=== PATIENT | male | born 1940 ===

== ENCOUNTER 2024-04-08 09:00 | Inpatient (IN) | payer MEDICARE, OTHER, SELFPAY ==
[2024-04-06 17:22] VITALS: BP 127/68
[2024-04-06 17:41] VITALS: BMI 23.6
[2024-04-06 18:00] VITALS: BP 100/65
[2024-04-06 18:09] LABS: AST (SGOT) 42 U/L (17-59); Albumin 3.5 g/dl (3.5-5.0); Alkaline Phosphatase 78 U/L (38-126); Blood Urea Nitrogen 35 mg/dl (9-20); Calcium 9.8 mg/dl (8.4-10.2); Carbon Dioxide 29 mmol/L (22-30); Chloride 98 mmol/L (98-107); Estimated Creatinine Clearance 50 ml/min; Glucose 131 mg/dl (70-99); Sodium 139 mmol/L (135-145); Total Bilirubin 1.4 mg/dl (0.2-1.3); Total Protein 6.7 g/dl (6.3-8.2); eGFR > 60.00
[2024-04-06 18:20] LABS: ALT (SGPT) 40 U/L (0-50)
[2024-04-06 18:25] LABS: % Basophils 0.2 % (0-2); % Eosinophils 0.1 % (0-6); % Immature Granulocytes 1.2 % (0-0.5); % Lymphocytes 5.1 % (20.5-51.1); % Monocytes 5.5 % (1.7-9.3); % Neutrophils 87.9 % (42.2-75.2); Absolute Basophils 0.1 10^3/uL (0-0.2); Absolute Immature Granulocytes 0.4 10^3/uL (0-0.05); Absolute Lymphocytes 1.6 10^3/uL (1.2-3.4); Absolute Monocytes 1.7 10^3/uL (0.1-0.6); Absolute Neutrophils 26.8 10^3/uL (1.4-6.5); Hematocrit 43.1 % (39.0-52.0); Hemoglobin 14.6 g/dL (13.0-18.0); Mean Corp Hgb Conc. 33.9 g/dL (33.0-37.0); Mean Corpuscular Hgb 26.8 pg (27.0-31.0); Mean Corpuscular Volume 79.2 fL (80.0-94.0); Mean Platelet Volume 9.5 fL (7.4-10.4); Nucleated Red Blood Cells % 0 % (-); Platelet Count 135 10^3/uL (130-400); Red Blood Cell Count 5.44 10^6/uL (4.70-6.10); Red Cell Dist. Width 14.1 % (11.5-14.5); White Blood Cell Count 30.5 10^3/uL (4.8-10.8)
[2024-04-06 19:00] VITALS: BP 105/68
[2024-04-06] MEDS: TORADOL 15 MG IV (19:33)
[2024-04-06 20:00] VITALS: BP 106/51
[2024-04-06 20:26] LABS: Creatine Phosphokinase 85 U/L (55-170)
[2024-04-06 21:01] VITALS: BP 120/62
--- NOTE | 2024-04-06 21:12 | ED.GENMED ---
History of Present Illness
General
Chief Complaint: Fall
Source: patient
Time Seen by Provider: 04/06/24 20:47
History of Present Illness
History of Present Illness:
84-year-old male presents to the emergency room complaining of back pain. Patient has a history of chronic back pain for which she sees pain management. His back pain has increased in intensity recently. Patient recently had an MRI of his lumbar
spine which showed spinal stenosis as well as some disc herniations. patient was prescribed a course of steroids by pain management with a plan on the bedside epidural injections if medications are not helping. Patient denies any bowel or bladder
dysfunction. Earlier this morning the patient was having back pain any got up out of bed. He had a sudden increase in the pain making it impossible for him to stand. He lowered himself to the ground and was laying on the ground for several hours.
He now has pain in his thoracic spine as well. Pain is all worse with movement. He denies any recent fever or chills.
Phy Exam
Physical Exam
Physical Exam:
General: Awake, Alert, Oriented X3. No acute distress, appears stated age, appears uncomfortable with movement
Vitals: unremarkable
Head: Atraumatic
Eyes: Pupils equal, EOMI
Throat: Airway intact, no exudates, dry mucous
Neck: Trachea midline
Lungs: Clear and equal b/l
Heart: Regular rate, no murmurs
Abd: Soft, Nontender, No pulsatile mass
Back: Point tenderness palpation along the mid thoracic region
Neuro: Muscle strength equal bilaterally, sensation intact bilaterally, negative straight leg test bilaterally
Skin: Warm, dry, no rash
Extremities: pulses equal b/l, no edema
Course
Orders/Labs/Results
Orders:
Orders
04/06/24 17:43
Complete Blood Count/With Diff Urgent
Comprehensive Metabolic Panel Urgent
Creatine Phosphokinase Urgent
Comment: ADD ON
04/06/24 19:30
Ketorolac [Toradol] 15 mg .ROUTE .STK-MED ONE
04/06/24 19:32
Add On- LAB Urgent
Tests Added?: CPK
Ketorolac [Toradol] 15 mg IV NOW STA
04/06/24 21:06
CT Thoracic Spine W/o Iv Contr Urgent
Comment:
Reason For Exam: severe thoracic pain, fall
HYDROmorphone [Dilaudid] 0.5 mg IV NOW STA
04/06/24 21:09
Urinalysis Reflex To Culture Urgent
Date Specimen was Collected: 04/07/24
Time Specimen was Collected: 02:09
04/06/24 22:48
Lumbar Spine wo Contrast CT [CT Lumbar Spine W/o Iv Contras] Urgent
Comment:
Reason For Exam: fall/backpain
04/07/24 01:18
HYDROmorphone [Dilaudid] 0.5 mg IV NOW STA
04/07/24 01:46
CRP [C-Reactive Protein] Urgent
Sed Rate [Erythrocyte Sed Rate] Urgent
04/07/24 02:23
Admit/Transfer Patient As Directed
Co-Sign Provider:
Level of Care: Observation services
Assign to:: Telemetry
Physician / Group: Mateo
Diagnosis: Intractable Back Pain
Reason for Telemetry: Arrhythmia
Date to Stop Telemetry: 04/10/24
Time to Stop Telemetry: 11:00
Code Status As Directed
Resuscitation Status: Full Code
PRN Pain Medication Management As Directed
May give lesser potent ordered pain med per pt: Yes
preference::
Protocol:: Medication orders for pain may be administered in a
manner that supports deferring to patient preference
when the pt is:
- Requesting an ordered lesser potent pain medication.
Least to most potent pain medications are defined
as: acetaminophen < NSAID < tramadol < opioids
(morphine, oxycodone, hydromorphone).
- Requesting a lesser dose of the same medication IF
ORDERED.
- Requesting a less intrusive route of administration
if both routes are prescribed by the provider (PO <
IV).
04/07/24 02:41
Add On- LAB Urgent
Tests Added?: urine drug screen
04/10/24 11:00
DC Protocol for Telemetry ONCE
Abnormal Lab Results
04/06/24 04/07/24
17:43 01:46
WBC 30.5 H 10^3/uL
(4.8-10.8)
MCV 79.2 L fL
(80.0-94.0)
MCH 26.8 L pg
(27.0-31.0)
Abs Immat Gran (auto) 0.4 H 10^3/uL
(0-0.05)
Absolute Neuts (auto) 26.8 H 10^3/uL
(1.4-6.5)
Absolute Monos (auto) 1.7 H 10^3/uL
(0.1-0.6)
Immature Gran % 1.2 H %
(0-0.5)
Neutrophils % 87.9 H %
(42.2-75.2)
Lymphocytes % 5.1 L %
(20.5-51.1)
ESR 30 H mm/hour
(0-20)
BUN 35 H mg/dl
(9-20)
Glucose 131 H mg/dl
(70-99)
Total Bilirubin 1.4 H mg/dl
(0.2-1.3)
C-Reactive Protein 173.50 H mg/L
(0.0-10.00)
04/06/24 17:43
04/06/24 17:43
Vital Signs
Initial and Last Documented VS:
Initial Vital Signs
Temp Pulse BP Pulse Ox
97.9 F 82 127/68 99
04/06/24 17:22 04/06/24 17:22 04/06/24 17:22 04/06/24 17:22
Last Documented Vital Signs
Temp Pulse Resp BP Pulse Ox
97.9 F 74 16 93/58 97
04/06/24 17:22 04/06/24 22:30 04/06/24 22:30 04/06/24 22:00 04/06/24 22:15
MDM/Problems Addressed
Differential Diagnosis Includes:
Exacerbation of chronic back pain, kidney stone, epidural abscess or osteomyelitis
MDM/Problems Addressed:
Patient presents due to severe persistent back pain. Patient unable to ambulate. He laid on the ground for quite a long time today because he could not get up from the pain. CPK is not elevated. Labs show an elevated white blood cell count at
30,000 which I suspect is related to recent prednisone use. Chemistry show mild prerenal azotemia. C-reactive protein is elevated at 173. Will hospitalize the patient for pain management and further evaluation.
*Radiology
Radiology exam reviewed: radiology read reviewed
*Pulse Oximetry
Patient hypoxic: no
*Critical Care Note
Total Time (30-74mins, 75-104mins- exclusive of procedures): Not Applicable
ED Attending Note
-
Portions of this chart may have been created with voice recognition software.� Occasional wrong word or��sound alike� substitutions may have occurred due to the inherent limitations of voice recognition software.
Discharge Plan
Departure
Patient Disposition: Admit
Date of Disposition: 04/07/24
Time of Disposition: 01:18
Admit to: Med/Surg
Presentation/result/management discussed w/ accepting MD/DO: Hospitalist
Condition: Fair
Discharge Problem:
Severe back pain, Spinal stenosis, Leukocytosis
Prescriptions:
No Action
Unobtainable
0
Referrals:
Rios Velásquez MD [Family Provider] -
Discharge Date and Time
Print Language: OCCITAN
[2024-04-06] MEDS: DILAUDID 0.5 MG IV (21:18)
[2024-04-06 22:00] VITALS: BP 93/58
[2024-04-07] VITALS (18 sets, daily range): BP systolic 94–132; BP diastolic 44–72; PULSE 63–65; BMI 23.6; BMI 22.4
[2024-04-07] MEDS: DILAUDID 0.5 MG IV ×3 (01:28→10:10)
[2024-04-07 02:03] LABS: Erythrocyte Sed Rate 30 mm/hour (0-20)
[2024-04-07 02:14] LABS: Urine Albumin Negative (Neg - Trace); Urine Bilirubin Negative (Negative); Urine Character Clear (Clear); Urine Color Yellow; Urine Glucose Negative (Negative); Urine Ketone Negative (Negative); Urine Leukocyte Negative (Negative); Urine Nitrite Negative (Negative); Urine Occult Blood Negative (Negative); Urine Urobilinogen Negative (Neg - 1+)
--- NOTE | 2024-04-07 02:26 | HPS.HSE ---
Family Physician
-
Family Physician: Rios Velásquez
Chief Complaint
-
Back Pain
History of Present Illness
Patient is an 84y M with PMH significant for aortic stenosis s/p AVR, ASCVD and DDD with chronic pain who presents to ED complaining of back pain. Patient is an extremely difficult historian. Often answering 'I don't know' or 'I'm not sure' to
questions regarding timing / onset of symptoms. He states that he developed severe low back pain last PM with radiation into the L buttocks and LLE. He lie on the floor at home for 7-8 hours - unable to move - before contacting 911 and presenting
to the ED for evaluation. He was incontinent of urine during that time.
Patient denies any recent fall, injury or trauma. He cannot / will not state when his symptoms first began.
He states that he is followed by Dr. Somers of Pain Management. PDMP query suggests that this is a very recent relationship with only a single Rx this far written and filled on 04/02/24.
Patient states that he was also treated with gabapentin and prednisone taper. He states that none of these measures improved his pain.
In the ED, patient is writhing around in bed appearing uncomfortable. He is moving his LEs without any apparent difficulty or changes to his pain.
Medical History
Past Medical History
Past Medical History: Reports Other
Additional Past Medical History:
Paroxysmal Atrial Fibrillation
ASCVD
Nephrolithiasis
Gout
Aortic Stenosis
Hypothyroidism
Hypertension
BPH
DDD / Chronic Pain
Past Surgical History: Reports Other
Additional Past Surgical History:
Bio AVR
CABG
Bilateral Hernia Repairs
Social History
Tobacco: Non-smoker
Alcohol: Former
Drug: None
Family History
Family History: Not pertinent
Allergies / Home Medications
Allergies reflects when Allergies were last updated in [facility]
Home Medications with original date entered in [facility]
Allergy/Medication List:
Patient is unable to recite his current medications and doses.
He is aware that he takes Multaq once daily (twice daily causes GI distress) and Eliquis 5mg BID.
He cannot recall other meds, doses, etc.
If medication reconciliation has not been performed, why?: Medication List N/A (Patient cannot recall.)
Review of Systems
-
History Source: Patient
A 12 point ROS was completed and negative except as noted: Yes
Constitutional: Denies Fever, Fatigue or Chills
Respiratory: Denies Cough or Trouble Breathing
Cardiac: Denies Chest Pain or Palpitations
Abdomen/GI: Denies Abdominal Pain, Nausea, Vomiting or Diarrhea
: Reports Incontinence; Denies Dysuria, Frequency or Flank Pain
Musculoskeletal: Reports Other (Back Pain, Sciatica); Denies Joint Pain or Edema
Neurological: Denies Dizzy or Headache
Physical Exam
Vital Signs
Vital Signs
Temp Pulse Resp BP Pulse Ox
97.9 F 74 16 93/58 97
04/06/24 17:22 04/06/24 22:30 04/06/24 22:30 04/06/24 22:00 04/06/24 22:15
Physical Exam
General: Other (84y M in moderate distress due to pain. Restless / writhing in bed.)
HEENT: Moist mucous membranes and PERRLA
Respiratory: Clear; No Wheezes, Rales or Rhonchi
Cardiac: S1/S2, Regular Rhythm and Murmur (II/ SHARONA)
GI: Soft, Non Tender, Non Distended and Normal Bowel Sounds
Musculoskeletal: No Clubbing, No Cyanosis, No Edema and Other (No paraspinal spasms / cords appreciated. Patient reports tenderness diffusely over the back. )
Neuro: AO x 3 and Nonfocal/grossly intact
Laboratory Results
-
04/06/24 17:43
04/06/24 17:43
Laboratory Results
Total Bilirubin 1.4 mg/dl (0.2-1.3) H 04/06/24 17:43
AST 42 U/L (17-59) 04/06/24 17:43
ALT 40 U/L (0-50) 04/06/24 17:43
Alkaline Phosphatase 78 U/L (38-126) 04/06/24 17:43
Impression/Plan
-
A/P: Patient is an 84y M with PMH significant for A-Fib, ASCVD and DDD who presents to ED complaining of back pain and sciatica.
Intractable Lower Back Pain
LLE Radicular Pain
- Observe overnight for further evaluation and treatment.
- CT T and L spine done in the ED with multilevel degeneration.
- Spinal stenosis at L3-4 and L4-5 levels.
- Patient with no perineal numbness / tingling. No evident LE weakness and he is moving without difficulty in the bed.
- Incontinent of urine at home - but seems due to inability to move from pain rather than neurogenic incontinence.
- Physical exam is relatively unremarkable excepting patient's apparent distress.
- Supportive care overnight with pain control.
- Tylenol ATC, lidocaine topical, heat application.
- Continue oxycodone for moderate pain. Dilaudid for severe pain.
- Trial of Valium for muscle spasms, etc.
- PT / OT evaluations in the AM and follow for clinical improvement.
- Follow-up with usual Pain Management as an outpatient.
Leukocytosis
- WBC on labs is 30k with no prior for comparison.
- ? secondary to recent steroid treatment?
- Hold further steroids for now - have not been effective in any event.
- Monitor for changes in cell counts.
- Patient with no fevers / chills, or other focal complaints to suggest infectious process.
Paroxysmal Atrial Fibrillation
- Patient reports remote h/o A-Fib that seemed always triggered by alcohol intake.
- He states that he has had no alcohol in many years.
- Continue Multaq and Eliquis.
- Monitor on tele overnight.
ASCVD
Aortic Stenosis s/p BioAVR
- Stable. No chest pain, dyspnea, etc.
- Confirm / reconcile meds in the AM and then resume usual regimen.
DVT Prophylaxis: On Eliquis
Code Status: Full
[2024-04-07 02:58] LABS: Amphetamines Negative (Negative); Barbiturates Negative (Negative); Benzodiazepines Negative (Negative); Buprenorphine Negative (Negative); Cocaine Negative (Negative); Marijuana Negative (Negative); Methadone Negative (Negative); Methamphetamines Negative (Negative); Opiates Negative (Negative); Phencyclidine Negative (Negative); Tricyclic Antidepressants Negative (Negative)
[2024-04-07 03:13] LABS: Fentanyl, Urine Negative (Negative)
[2024-04-07 06:46] LABS: Blood Urea Nitrogen 39 mg/dl (9-20); Calcium 8.9 mg/dl (8.4-10.2); Carbon Dioxide 26 mmol/L (22-30); Chloride 102 mmol/L (98-107); Estimated Creatinine Clearance 55 ml/min; Glucose 92 mg/dl (70-99); Potassium 3.5 mmol/L (3.5-5.1); Sodium 139 mmol/L (135-145); eGFR > 60.00
[2024-04-07 07:42] LABS: Hematocrit 36.3 % (39.0-52.0); Hemoglobin 12.5 g/dL (13.0-18.0); Mean Corp Hgb Conc. 34.4 g/dL (33.0-37.0); Mean Corpuscular Hgb 27.2 pg (27.0-31.0); Mean Corpuscular Volume 78.9 fL (80.0-94.0); Mean Platelet Volume 8.9 fL (7.4-10.4); Platelet Count 92 10^3/uL (130-400); Red Cell Dist. Width 14.3 % (11.5-14.5); White Blood Cell Count 15.6 10^3/uL (4.8-10.8)
[2024-04-07] MEDS: ELIQUIS 5 MG PO ×2 (08:56→20:03)
[2024-04-07] MEDS: LIDOCAINE 4% PATCH TOPICAL (08:56)
[2024-04-07] MEDS: TYLENOL 1000 MG PO ×3 (08:56→21:19)
[2024-04-07] MEDS: SYNTHROID 88 MCG PO (08:56)
[2024-04-07] MEDS: VALIUM 5 MG PO ×2 (09:03→17:13)
--- NOTE | 2024-04-07 09:03 | W.PN.HOSP.TC ---
Today's Communication/Plan
-
Pain control. PT eval
Assessment / Plan
Assessment / Plan
Physical exam:
General: Well Developed, Well Nourished and No Apparent Distress
HEENT: Normocephalic, Atraumatic and Moist Mucous Membranes
Respiratory: Clear to Auscultation; Negative Wheezes, Rales or Rhonchi
Cardiac: Regular Rhythm and S1/S2, systolic murmur
GI: Soft, Nontender and Nondistended
Musculoskeletal: No Clubbing, No Cyanosis and No Edema
Neuro: Awake, Alert and Oriented
Psych: Calm
A/P:
Intractable Lower Back Pain
LLE Radicular Pain
- Observe for further evaluation and treatment.
- CT T and L spine done in the ED with multilevel degeneration.
- Spinal stenosis at L3-4 and L4-5 levels.
- Patient with no perineal numbness / tingling. No evident LE weakness and he is moving without difficulty in the bed.
- Incontinent of urine at home - but seems due to inability to move from pain rather than neurogenic incontinence.
- Physical exam is relatively unremarkable excepting patient's apparent distress.
- Supportive care overnight with pain control.
- Tylenol ATC, lidocaine topical, heat application.
- Continue oxycodone for moderate pain. Dilaudid for severe pain.
- Trial of Valium for muscle spasms, etc.
- PT / OT evaluations in the AM and follow for clinical improvement.
- Follow-up with usual Pain Management as an outpatient.
-Start bowel regimen
-Discussed at length with family at bedside today on 04/07
Leukocytosis
- WBC on labs is 30k with no prior for comparison. WBC down to 15 today
- ? secondary to recent steroid treatment?
- Hold further steroids for now - have not been effective in any event.
- Monitor for changes in cell counts.
- Patient with no fevers / chills, or other focal complaints to suggest infectious process.
Paroxysmal Atrial Fibrillation
- Patient reports remote h/o A-Fib that seemed always triggered by alcohol intake.
- He states that he has had no alcohol in many years.
- Continue Multaq and Eliquis.
- Monitor on tele overnight.
ASCVD
Aortic Stenosis s/p BioAVR
- Stable. No chest pain, dyspnea, etc.
- Confirm / reconcile meds in the AM and then resume usual regimen.
DVT Prophylaxis: On Eliquis
Code Status: Full
Anticipated Discharge: 24 - 48 hours
Subjective/Interval History
-
Date of Service: April 07, 2024
Patient still has significant pain in his back. No bowel bladder incontinence. No fever
Objective Data
-
Labs:
Laboratory Results
04/07/24
05:58
WBC 15.6 H
Hgb 12.5 L
Hct 36.3 L
Plt Count 92 L D
Sodium 139
Potassium 3.5
Chloride 102
Carbon Dioxide 26
BUN 39 H
Creatinine 1.0
Glucose 92
Calcium 8.9
Vital Signs:
Vital Signs
Temp Pulse Resp BP Pulse Ox
97.9 F 62 17 99/72 95
04/06/24 17:22 04/07/24 05:00 04/07/24 05:00 04/07/24 05:00 04/07/24 05:00
[2024-04-07] MEDS: MILK OF MAGNESIA 30 ML PO (11:51)
[2024-04-07] MEDS: SENOKOT 8.6 MG PO ×2 (11:59→20:03)
[2024-04-07] MEDS: MIRALAX 17 GRAMS PO (11:59)
[2024-04-07] MEDS: ROXICODONE 5 MG PO (20:09)
[2024-04-08] MEDS: DILAUDID 0.5 MG IV ×3 (01:42→14:33)
[2024-04-08 03:20] VITALS: BP 116/61
[2024-04-08] MEDS: VALIUM 5 MG PO (04:53)
[2024-04-08] MEDS: SYNTHROID 88 MCG PO (04:56)
[2024-04-08 07:50] VITALS: BP 120/70
[2024-04-08] MEDS: SENOKOT PO ×2 (08:15→23:50)
[2024-04-08] MEDS: MIRALAX PO (08:15)
[2024-04-08] MEDS: ELIQUIS 5 MG PO (08:16)
[2024-04-08] MEDS: TYLENOL 1000 MG PO (08:16)
[2024-04-08 08:19] LABS: % Basophils 0.2 % (0-2); % Eosinophils 1.2 % (0-6); % Immature Granulocytes 1.2 % (0-0.5); % Neutrophils 84.4 % (42.2-75.2); Absolute Eosinophils 0.1 10^3/uL (0-0.7); Absolute Immature Granulocytes 0.1 10^3/uL (0-0.05); Absolute Lymphocytes 0.9 10^3/uL (1.2-3.4); Absolute Monocytes 0.4 10^3/uL (0.1-0.6); Absolute Neutrophils 8.2 10^3/uL (1.4-6.5); Hematocrit 38.1 % (39.0-52.0); Hemoglobin 13.1 g/dL (13.0-18.0); Mean Corp Hgb Conc. 34.4 g/dL (33.0-37.0); Mean Corpuscular Hgb 27.9 pg (27.0-31.0); Mean Corpuscular Volume 81.1 fL (80.0-94.0); Mean Platelet Volume 8.9 fL (7.4-10.4); Nucleated Red Blood Cells % 0 % (-); Platelet Count 101 10^3/uL (130-400); Red Cell Dist. Width 14.2 % (11.5-14.5); White Blood Cell Count 9.7 10^3/uL (4.8-10.8)
[2024-04-08] MEDS: LIDOCAINE 4% PATCH 1 PATCH TOPICAL (08:20)
[2024-04-08 08:52] LABS: Blood Urea Nitrogen 34 mg/dl (9-20); Calcium 9.2 mg/dl (8.4-10.2); Carbon Dioxide 26 mmol/L (22-30); Chloride 102 mmol/L (98-107); Estimated Creatinine Clearance 60 ml/min; Glucose 120 mg/dl (70-99); Potassium 3.7 mmol/L (3.5-5.1); Sodium 137 mmol/L (135-145); eGFR > 60.00
--- NOTE | 2024-04-08 09:18 | W.PN.HOSP.TC ---
Today's Communication/Plan
-
Increased pain regimen.
Assessment / Plan
Assessment / Plan
Physical exam:
General: Well Developed, Well Nourished and No Apparent Distress
HEENT: Normocephalic, Atraumatic and Moist Mucous Membranes
Respiratory: Clear to Auscultation; Negative Wheezes, Rales or Rhonchi
Cardiac: Regular Rhythm and S1/S2, systolic murmur
GI: Soft, Nontender and Nondistended
Musculoskeletal: No Clubbing, No Cyanosis and No Edema
Neuro: Awake, Alert and Oriented
Psych: Calm
A/P:
Intractable Lower Back Pain
LLE Radicular Pain
- Observe for further evaluation and treatment.
- CT T and L spine done in the ED with multilevel degeneration.
- Spinal stenosis at L3-4 and L4-5 levels.
- Patient with no perineal numbness / tingling. No evident LE weakness and he is moving without difficulty in the bed.
- Incontinent of urine at home - but seems due to inability to move from pain rather than neurogenic incontinence.
- Physical exam is relatively unremarkable excepting patient's apparent distress.
- Supportive care overnight with pain control.
- Tylenol ATC, lidocaine topical, heat application.
- Will change his pain regimen---> will start him on OxyContin 10 mg twice a day, oxycodone 5 mg for moderate pain, oxycodone 10 mg for severe pain, IV Dilaudid for breakthrough pain.
- Discontinue Valium
- PT / OT evaluations and follow for clinical improvement.
- Follow-up with usual Pain Management as an outpatient.
-Start bowel regimen
-Discussed at length with family at bedside on 04/07
Leukocytosis
-Reactive as evidenced below. Remains afebrile
- WBC on labs is 30k with no prior for comparison. WBC down to9.7 today
- ? secondary to recent steroid treatment?
- Hold further steroids for now - have not been effective in any event.
- Monitor for changes in cell counts.
- Patient with no fevers / chills, or other focal complaints to suggest infectious process.
Paroxysmal Atrial Fibrillation
- Patient reports remote h/o A-Fib that seemed always triggered by alcohol intake.
- He states that he has had no alcohol in many years.
- Continue Multaq and Eliquis.
- Monitor on tele overnight.
ASCVD
Aortic Stenosis s/p BioAVR
- Stable. No chest pain, dyspnea, etc.
- Confirm / reconcile meds in the AM and then resume usual regimen.
DVT Prophylaxis: On Eliquis
Code Status: Full
Anticipated Discharge: > 48 hours
Subjective/Interval History
-
Date of Service: April 08, 2024
Patient complains that his pain is out of control and has not been better. RN reports no issues with pain before but now he has been complaining.
Objective Data
-
Labs:
Laboratory Results
04/08/24
07:49
WBC 9.7
Hgb 13.1
Hct 38.1 L
Plt Count 101 L
Sodium 137
Potassium 3.7
Chloride 102
Carbon Dioxide 26
BUN 34 H
Creatinine 0.9
Glucose 120 H
Calcium 9.2
Vital Signs:
Vital Signs
Temp Pulse Resp BP Pulse Ox
98.4 F 85 12 120/70 94
04/08/24 07:50 04/08/24 07:50 04/08/24 07:50 04/08/24 07:50 04/08/24 07:50
I&O
04/07/24 04/08/24 04/09/24
06:59 06:59 06:59
Output Total 700 / 700
Balance -700 / -700
--- NOTE | 2024-04-08 10:00 | PTCARENOTE ---
Assumed care of patient from previous nurse. AAOx3, c/o 03/26 low back pain with movement. Pain medications administered, see MAR. Plan of care ongoing.
[2024-04-08] MEDS: ROXICODONE 5 MG PO (10:17)
[2024-04-08] MEDS: NEURONTIN 300 MG PO (10:54)
[2024-04-08 11:42] VITALS: BP 120/70
[2024-04-08] MEDS: HYDROCORTISONE 1% CREAM 1 APPLIC TOPICAL ×2 (13:06→23:49)
[2024-04-08] MEDS: ROXICODONE 10 MG PO ×2 (13:07→17:07)
[2024-04-08 15:15] VITALS: BP 127/64
--- NOTE | 2024-04-08 16:38 | CM ---
water reuse program manager reviewed patient's chart and met with patient and patient has switched to inpatient, IMM completed and placed on chart. Patient lives alone in a 2 story home with bed and bathroom on the 2nd floor, patient is independent with adl's and
uses a walker with ambulation, plan was for skilled placement however patient reports that he may have surgery.
Plan; To await final plan for patient.
PCP: Dr. Velásquez
Pharmacy [facility]
[2024-04-08] MEDS: TYLENOL PO ×3 (17:06→23:14)
[2024-04-08] MEDS: MULTAQ 400 MG PO (17:06)
[2024-04-08 19:28] VITALS: BP 110/63
[2024-04-08 21:25] VITALS: BP 126/90
[2024-04-08 21:28] LABS: Glucose - Point of Care 118 mg/dl (70-99)
--- NOTE | 2024-04-08 21:30 | RR ---
A Rapid Response was called on this patient, please see Rapid Response form.
RN entered pt room to administer scheduled meds. 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 Pt BP 126/90, HR 102, Temp
101.5, RR 16- regular, SPO2 94% RA, BS 118, EKG done. Rapid response and stroke alert called. Rectal tylenol ordered and administered, head CT and chest xray ordered, labs drawn, 500mL bolus ordered.
[2024-04-08] MEDS: TYLENOL/FEVERALL 650 MG RECTAL (22:01)
--- NOTE | 2024-04-08 22:01 | W.PN.UPDATE ---
Update Note
Progress Note Update
PARACHUTE MARKER/Stroke alert alert
Patient has a change on mental status and confused. Patient not able to follow direction and was disoriented. Not able to get accurate NIH score.
VSS temp 102, bp 126/98, SPO2 95% RA, hr 94. BS 118.
Discussed the case with neurologist party plan salesperson. Head CT and head/neck CTA ordered by the neurologist
Lactic acid, urine culture, blood cultures, cbc, bmp ordered chest x-ray ordered.
Head CT result shows No acute intracranial abnormality noted.
Mild atrophy with sequelae of mild small vessel ischemic disease.
CTA head result shows No large vessel occlusion. No significant arterial stenosis. No aneurysm. Mild atherosclerotic calcifications of the cavernous segments of the bilateral ICAs. Mild mucosal thickening of the paranasal sinuses.
CTA Neck: Atherosclerotic calcifications of the bilateral carotid bifurcations/proximal ICAs, more pronounced on the left where there is resultant approximately 40% stenosis by NASCET criteria. Left dominant vertebral artery. Degenerative changes of
the cervical spine.
Result reviewed with the Dr. Rm, recommendations to hold Eliquis, start asa 81 mg, and plan for MRI tomorrow.
Lactic 2.1 500cc NSS given and will trend lactic. Covid is neg, Urine, blood cultures result are pending.
Troponin 0.109, patient denied chest pain, SOB, will trend troponin and monitor for changes. EKG done.
Chest x-ray show Lungs: Low lung volumes without focal airspace disease. No pleural effusion or pneumothorax.
Heart: Cardiac and mediastinal contours are unremarkable. Prior aortic valve replacement. Mild atherosclerotic calcifications of the thoracic aorta.
Osseous structures: Median sternotomy wires present.
[2024-04-08 22:28] LABS: Lactic Acid 2.1 mmol/L (0.7-2.0)
[2024-04-08 22:29] LABS: Blood Urea Nitrogen 30 mg/dl (9-20); Calcium 9.6 mg/dl (8.4-10.2); Carbon Dioxide 31 mmol/L (22-30); Chloride 98 mmol/L (98-107); Estimated Creatinine Clearance 49 ml/min; Glucose 128 mg/dl (70-99); Potassium 3.8 mmol/L (3.5-5.1); Sodium 136 mmol/L (135-145); eGFR > 60.00
[2024-04-08 22:38] LABS: INR 1.35; PT 16.7 Sec (11.4-14.6)
[2024-04-08 22:39] LABS: APTT 28.2 Sec (23.4-35.0)
[2024-04-08 22:41] LABS: Troponin I 0.109 ng/ml
[2024-04-08 22:56] LABS: % Basophils 0.2 % (0-2); % Eosinophils 1.1 % (0-6); % Immature Granulocytes 0.9 % (0-0.5); % Lymphocytes 10.1 % (20.5-51.1); % Monocytes 6.1 % (1.7-9.3); % Neutrophils 81.6 % (42.2-75.2); Absolute Eosinophils 0.1 10^3/uL (0-0.7); Absolute Immature Granulocytes 0.1 10^3/uL (0-0.05); Absolute Lymphocytes 0.9 10^3/uL (1.2-3.4); Absolute Monocytes 0.5 10^3/uL (0.1-0.6); Absolute Neutrophils 6.9 10^3/uL (1.4-6.5); Hematocrit 36.3 % (39.0-52.0); Hemoglobin 12.6 g/dL (13.0-18.0); Mean Corp Hgb Conc. 34.7 g/dL (33.0-37.0); Mean Corpuscular Hgb 26.5 pg (27.0-31.0); Mean Corpuscular Volume 76.4 fL (80.0-94.0); Mean Platelet Volume 8.6 fL (7.4-10.4); Nucleated Red Blood Cells % 0 % (-); Platelet Count 102 10^3/uL (130-400); Red Blood Cell Count 4.75 10^6/uL (4.70-6.10); Red Cell Dist. Width 14.3 % (11.5-14.5); White Blood Cell Count 8.5 10^3/uL (4.8-10.8)
[2024-04-08] MEDS: ELIQUIS PO (23:12)
[2024-04-08] MEDS: NEURONTIN PO (23:13)
[2024-04-08] MEDS: NSS 500 IV (23:50)
[2024-04-09 00:39] LABS: COVID-19 Antigen Negative (Negative)
--- NOTE | 2024-04-09 01:18 | RESPNOTE ---
called to give pt PRN Duoneb due to SOB. Pt appears comfortable at this time, other than clearing his throat. Pt denies SOB and states 'I don't need that, I know what Albuterol is for. I just want some ice to suck on.' RN notifies and gave
permission for pt to have ice. Instructed pt to notify RN if SOB develops.
[2024-04-09 01:21] LABS: Urine Albumin Negative (Neg - Trace); Urine Bilirubin Negative (Negative); Urine Character Clear (Clear); Urine Color Yellow; Urine Glucose Negative (Negative); Urine Ketone Negative (Negative); Urine Leukocyte Negative (Negative); Urine Nitrite Negative (Negative); Urine Occult Blood 1+ (Negative); Urine Urobilinogen Negative (Neg - 1+); Urine pH 6.5 (5.0-9.0)
[2024-04-09 01:46] LABS: Urine Red Blood Cell 16-20 /HPF (0-2)
[2024-04-09 01:47] LABS: Urine Bacteria Moderate (Negative)
[2024-04-09 03:24] VITALS: BP 125/62
[2024-04-09] MEDS: SYNTHROID 88 MCG PO (06:00)
[2024-04-09 07:02] LABS: Lactic Acid 1.2 mmol/L (0.7-2.0)
[2024-04-09 07:30] VITALS: BP 110/57
[2024-04-09 07:33] LABS: NT-proBNP 1820 pg/ml; Troponin I 0.077 ng/ml
--- NOTE | 2024-04-09 08:55 | CON.NEURO4 ---
Addendum entered and electronically signed by Shakila Rm DO 04/09/24 14:13:
Studies reviewed.
I have personally examined the patient. I agree with the INSULATION EXTRUDER OPERATOR's Note.
My addenda: 84-year-old male admitted with intractable back pain woken up out of a deep sleep yesterday evening with confusion and inability to read and identify objects during a stroke alert. Otherwise his exam was nonfocal. He has subsequently
returned to his baseline. He does not remember getting imaging done last night. Head CT and CTA head and neck did not show any acute findings. He was not a candidate for TNK as he is already on Eliquis and took a dose yesterday. He remains back
to his baseline. He is refused MRI of the brain. Family reports that he has a history of being confused when waking up out of a deep sleep. No history of stroke or seizure. NIH stroke scale is 0 currently. Differential for this event includes
confusional arousal/encephalopathy due to side effect of narcotics given for back pain. TIA seems much less likely.He has been transferred to [facility] for further workup for his lumbar stenosis.
Original Note:
Documented by User: Frances Cortes NP 04/09/24 12:01
Consultation - Neurology 4
-
CONSULTING PHYSICIAN: Shakila Rm DO
REFERRING PHYSICIAN: Hospitalists/BYRON Larry
DICTATED BY: BYRON Holguin
DATE/TIME OF REQUEST: 04/09/24
DATE/TIME OF CONSULTATION: 04/09/24
Reason for Consultation: Stroke Alert
History of Present Illness:
This is an 84-year-old right-handed male who has presented to the hospital on 04/06/24 with report of intractable back pain. Patient reports of history of chronic back pain and he is followed by pain management Dr. Somers. He notes an increase in
his lower back pain in the past few weeks and underwent outpatient lumbar spine MRI imaging which demonstrated severe lumbar spine stenosis and disc herniations. He completed a short course of oral steroids and was also started on Percocet, with a
plan to consider epidural injections and neurosurgery evaluation with a performance specialist at [facility]. Patient notes that three days ago on 04/06/24 he went to get up out of bed and suddenly had severe lower back pain with LLE radiculopathy. The
back pain was so severe that he could not continue standing and he was able to lower himself to the floor. He was laying on the ground for 7-8 hours before he felt okay enough to move to get to his phone to call 911. He was intentionally incontinent
of urine while lying on the ground. On arrival in the ER, CT thoracic and lumbar spine were obtained and are consistent with his known multilevel degenerative changes. He has been taking gabapentin 300mg BID, oxycodone 10mg PO PRN, and he had one
dose of 0.5mg Dilaudid yesterday. Last evening (04/08/24), nursing staff woke the patient up from sleep for patient care, and noted that he was disoriented and not following commands appropriately, prompting them to activate a stroke alert. CT head
and CTA head/neck were obtained and are negative for any acute findings. Patient reports that he had pain medications a few hours prior and was in a deep sleep dreaming about when he lived in [place] when he was woken up. He notes remembering
being disoriented at that time, thinking he was still in [place], and notes that within 20-30 minutes he came to and was at his baseline again. Today (04/09/24), he reports feeling 100% at his baseline. He notes 8/10 lower back pain with movement,
no pain at rest. He denies any headache, neck pain, vision changes, speech/swallow difficulty, numbness, weakness, chest pain, palpitations, and shortness of breath. He has been refusing narcotics for back pain this morning because he thinks they
make him too 'out of it' and drowsy. He denies any history of TIA, stroke, or events like this in the past. He is taking Eliquis for paroxysmal Afib and denies missing any doses.
Past Medical History: Paroxysmal Afib (Eliquis), hypothyroidism, HTN, HLD, CAD, aortic stenosis, BPH, gout, renal calculi, anxiety, depression s/p passing away 2 years ago, sepsis due to Strep D, DDD, chronic back pain
Surgical History: AVR, CABG, b/l inguinal hernia repair
Family History: Reviewed and noncontributory.
Social History: Denies tobacco and illicit drug use. Former alcohol. 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
Allergies: Fentanyl, statin intolerance.
Home Medications: See below.
Review of Symptoms:
Patient denies any fever, headache, chest pain, shortness of breath, GI or symptoms.
�Per the HPI.�All systems are reviewed negative except above.
Physical Exam:
The patient is afebrile, abdomen is nondistended, breathing is unlabored, skin is warm and dry, scattered scabs on BLE, no edema.
NIH Stroke Scale:
I performed the NIH stroke scale on the patient on 04/09/24 at 1000. The patient scored 0 points on the NIH stroke scale assessment, which were assigned as follows: See below.
Neurologic Examination:
The patient is awake, alert and oriented x 3. He is able to follow commands and answer questions appropriately. There is no aphasia or dysarthria. On cranial nerve assessment, pupils are 3 mm bilateral, round and reactive to light and
accommodation. Visual gregorio are full. Extraocular movements are intact. Facial sensations are intact and bilaterally symmetrical, there is no facial asymmetry. Hearing is intact bilaterally to normal conversation volume. Tongue palate and uvula are
midline. Sternocleidomastoid strengths are full bilaterally. Motor strengths are 5/5 bilateral upper and lower extremities on medical research [place] scale. There is no drift or involuntary movement noted. Deep tendon reflexes are 2+ bilateral
upper and lower extremities and Babinski is absent bilaterally. Sensations of touch, temperature and vibration are intact and bilaterally symmetrical. There was no extinction noted on double simultaneous stimulation. Coordination is intact by finger
to nose bilaterally.
Lab Results: See below.
Neuro Imaging:
1. CT Head 04/08/24: No acute intracranial abnormality noted. Mild atrophy with sequelae of mild small vessel ischemic disease. Aspects: 10.
2. CTA Head/Neck 04/08/24: CTA Head: No large vessel occlusion. No significant arterial stenosis. No aneurysm. Mild atherosclerotic calcifications of the cavernous segments of the bilateral ICAs. Mild mucosal thickening of the paranasal sinuses. CTA
Neck: Atherosclerotic calcifications of the bilateral carotid bifurcations/proximal ICAs, more pronounced on the left where there is resultant approximately 40% stenosis by NASCET criteria. Left dominant vertebral artery. Degenerative changes of the
cervical spine.
Differentials for the patient's presentation include:
1. Transient confusion likely due to be awoken during a deep sleep state in the setting of narcotic usage.
2. Very low concern for TIA or stroke.
3. CT head negative for hemorrhage, CTA head/neck negative for LVO/severe stenosis.
Patient has the following risk factors for their symptoms: Narcotic usage, sleeping, HTN, HLD, age
IV Tenecteplase/IAT candidacy: Not a candidate due to Eliquis usage, no LVO.
Recommendations:
-Resume home Eliquis, discontinue aspirin.
-Patient refusing MRI brain, reasonable to not do this unless he becomes confused again, will discontinue for now.
-Goal normotension.
-Minimize narcotic usage as much as possible.
-Neurological checks per unit guidelines. Okay to discontinue NIHSS.
-Provide patient with a stroke education packet.
-Outpatient follow-up with Neurosurgical performance specialist.
-Continue PT.
-Neurology will follow as-needed, please contact our service with any questions/concerns.
Discussed patient care with: Dr. Rm, the patient
Vital Signs and Labs
-
Vital Signs and Labs:
Vital Signs
Temp Pulse Resp BP Pulse Ox
97.6 F 62 18 110/57 99
04/09/24 07:30 04/09/24 07:30 04/09/24 07:30 04/09/24 07:30 04/09/24 07:30
Lab Results
04/08/24 22:51
04/08/24 22:00
PT 16.7 Sec (11.4-14.6) H 04/08/24 22:00
INR 1.35 04/08/24 22:00
APTT 28.2 Sec (23.4-35.0) 04/08/24 22:00
Sodium 136 mmol/L (135-145) 04/08/24 22:00
Potassium 3.8 mmol/L (3.5-5.1) 04/08/24 22:00
BUN 30 mg/dl (9-20) H 04/08/24 22:00
Glucose 128 mg/dl (70-99) H 04/08/24 22:00
Calcium 9.6 mg/dl (8.4-10.2) 04/08/24 22:00
Ued-B-Wwlryvfibyq Pept 1820 pg/ml 04/09/24 06:08
LDL Cholesterol, Calc Cancelled 04/08/24 22:00
Vitamin B12 Cancelled 04/08/24 22:00
Ur Buprenorphine Negative (Negative) 04/07/24 02:10
Medications
-
Active Medications
Generic Name Dose Route Start Last Admin
Trade Name Freq PRN Reason Stop Dose Admin
Acetaminophen 1,000 mg 04/08/24 08:00 04/09/24 09:21
Acetaminophen 500 Mg Tablet PO 05/06/24 07:59 1,000 mg
TID RETA Administration
Albuterol/Ipratropium 3 ml 04/08/24 23:47
Ipratropium 0.5/Albuterol 3 Mg (3 Ml Ampul) INH
R Q4HPRN PRN
SOB/wheezing
Protocol
Apixaban 5 mg 04/07/24 08:00 04/08/24 23:12
Apixaban (Eliquis) 5 Mg Tablet PO 05/05/24 07:59 Not Given
BID RETA
Benzonatate 100 mg 04/09/24 02:19
Benzonatate 100 Mg Capsule PO 05/07/24 02:18
TIDPRN PRN
cough
Bisacodyl 10 mg 04/08/24 10:41
Bisacodyl 10 Mg Rectal Suppository RECTAL 05/06/24 10:40
DAILYPRN PRN
constipation
Carvedilol 6.25 mg 04/09/24 08:00 04/09/24 09:33
Carvedilol 6.25 Mg Tablet PO 05/07/24 07:59 Not Given
BID RETA
Chlorthalidone 12.5 mg 04/09/24 08:00 04/09/24 09:33
Chlorthalidone 25 Mg Tablet PO 05/07/24 07:59 Not Given
DAILY RETA
Dronedarone 400 mg 04/08/24 18:00 04/08/24 17:06
Dronedarone (Multaq) 400 Mg Tablet PO 05/06/24 17:59 400 mg
QPM RETA Administration
Gabapentin 300 mg 04/08/24 11:00 04/09/24 09:21
Gabapentin 300 Mg Capsule PO 05/06/24 10:59 300 mg
BID RETA Administration
Hydrocortisone 0 applic 04/08/24 13:00 04/09/24 09:22
Hydrocortisone 1% (Cream) Tube TOPICAL 05/06/24 12:59 1 applic
BID RETA Administration
Hydromorphone HCl 0.5 mg 04/08/24 10:37 04/08/24 14:33
Hydromorphone 0.5 Mg/0.5 Ml Syringe IV 04/22/24 10:36 0.5 mg
Q3HPRN PRN Administration
breakthrough pain
Levothyroxine Sodium 88 mcg 04/07/24 06:00 04/09/24 06:00
Levothyroxine 88 Mcg Tablet PO 05/05/24 05:59 88 mcg
DAILY @ 0600 RETA Administration
Lidocaine 1 patch 04/07/24 08:00 04/09/24 09:24
Lidocaine 4% Topical Patch TOPICAL 05/05/24 07:59 1 patch
DAILY RETA Administration
Protocol
Magnesium Oxide 400 mg 04/09/24 08:00 04/09/24 09:22
Magnesium Oxide 500 Mg Tablet PO 05/07/24 07:59 400 mg
BID RETA Administration
Oxycodone HCl 5 mg 04/08/24 10:37
Oxycodone 5 Mg Regular Release Tablet PO 04/22/24 10:36
Q4HPRN PRN
moderate pain
Oxycodone HCl 10 mg 04/08/24 10:37 04/08/24 17:07
Oxycodone 10 Mg Regular Release Tablet PO 04/22/24 10:36 10 mg
Q4HPRN PRN Administration
severe pain
Oxycodone HCl 10 mg 04/08/24 11:00 04/09/24 09:46
Oxycontin 10 Mg Controlled Release Tablet PO 04/22/24 10:59 Not Given
Q12 RETA
Polyethylene Glycol 17 grams 04/07/24 12:00 04/09/24 09:22
Polyethylene Glycol Powder 17 Grams Packet PO 05/05/24 11:59 17 grams
DAILY RETA Administration
Pravastatin Sodium 10 mg 04/09/24 08:00 04/09/24 09:13
Pravastatin 10 Mg Tablet PO 05/07/24 07:59 Not Given
TuTh@0800 RETA
Sennosides 8.6 mg 04/07/24 12:00 04/09/24 09:13
Sennosides (Senokot) 8.6 Mg Tablet PO 05/05/24 11:59 Not Given
BID RETA
Sodium Chloride 0 flush 04/07/24 05:00
Sodium Chloride 0.9% (Flush) Syringe IV 05/05/24 04:59
PER PROTOCOL RETA
Trazodone HCl 25 mg 04/08/24 21:55
Trazodone 50 Mg Tablet PO 05/06/24 21:54
HSPRN PRN
sleep
Home Medications
�Medication �Instructions �Recorded
apixaban 5 mg tablet (Eliquis) 5 mg PO BID Blood Clot 04/07/24
Prevention/Tx
carvedilol 6.25 mg tablet (Coreg) 6.25 mg PO BID Blood Pressure 04/07/24
chlorthalidone 25 mg tablet 12.5 mg PO DAILY Blood Pressure 04/07/24
dronedarone 400 mg tablet (Multaq) 400 mg PO DAILY Arrhythmia 04/07/24
gabapentin 300 mg capsule 300 mg PO BID pain 04/07/24
levothyroxine 88 mcg tablet 88 mcg PO DAILY Thyroid 04/07/24
(Synthroid)
magnesium oxide 400 mg PO BID Supplement 04/07/24
oxycodone-acetaminophen 5 mg-325 1 tab PO BIDPRN PRN severe pain 04/07/24
mg tablet
potassium chloride 10 mEq 10 meq PO BID Electrolyte Repletion 04/07/24
tablet,extended release
pravastatin 10 mg tablet 10 mg PO TUTH High Cholesterol 04/07/24
prednisone 10 mg tablets in a dose 10 mg PO DIRECTED 04/07/24
pack Anti-Inflammatory
trazodone 50 mg tablet 25 mg PO HSPRN PRN sleep 04/07/24
NIH Stroke Score
Subsequent NIH Scale
Date of Subsequent NIH Scale: 04/09/24
Time of Subsequent NIH Scale: 10:00
NIH Stroke Score
Level of Consciousness: 0 - Alert
LOC Questions: 0-Answers both correctly
LOC Commands: 0-Performs both correctly
Best Horizontal Gaze: 0-Normal
Visual Gregorio: 0=Normal, no visual loss
Facial Palsy: 0=Normal, symmetrical
Motor - Right Arm: 0=No drift 10 seconds
Motor - Left Arm: 0=No drift 10 seconds
Motor - Right Le-No drift 5 seconds
Motor - Left Le-No drift 5 seconds
Limb Ataxia: 0-Absent
Sensation: 0-Normal
Best Language: 0-No aphasia
Dysarthria: 0-Normal
Extinction and Inattention: 0-No abnormality
Total Score:: 0
Modified Crockett (mRS) Score
Modified Crockett Scale (mRS): No symptoms
Score: 0

Documented by User: Shakila Rm DO 04/09/24 14:10
NIH Stroke Score
NIH Stroke Score
Total Score:: 0
Modified Sylvia (mRS) Score
Score: 0
--- NOTE | 2024-04-09 09:07 | W.PN.HOSP.TC ---
Today's Communication/Plan
-
Transfer to [facility]
Assessment / Plan
Assessment / Plan
Physical exam:
General: Well Developed, Well Nourished and No Apparent Distress
HEENT: Normocephalic, Atraumatic and Moist Mucous Membranes
Respiratory: Clear to Auscultation; Negative Wheezes, Rales or Rhonchi
Cardiac: Regular Rhythm and S1/S2, systolic murmur
GI: Soft, Nontender and Nondistended
Musculoskeletal: No Clubbing, No Cyanosis and No Edema
Neuro: Awake, Alert and Oriented
Psych: Calm
CT thoracic and lumbar:
No evidence of acute fracture or traumatic malalignment.
Multilevel degenerative changes with resultant severe canal stenosis at the L3-L4 and L4-L5 levels. There is additional moderate canal stenosis at the L2-L3 and L5-S1 levels. Multilevel high-grade neuroforaminal narrowing.
Trace pleural calcifications along the right hemidiaphragm which may related to prior asbestos exposure.
A/P:
Intractable lower back pain:
See results of thoracic and lumbar spine CT
He is on Tylenol, Lidoderm patch, heating pads, gabapentin.
He is on OxyContin 10 mg twice a day, oxycodone 5 mg for moderate pain, oxycodone 10 mg for severe pain, IV Dilaudid for breakthrough pain.
He is on bowel regimen as well
Planning to do MRI of the lumbar spine but now that he has requested transfer will defer to transfer facility for further images.
Discussed with [facility] Neurosurgeon Dr. Breanna Mccray and she told me accepting physician will be Dr Devan Mccormack.
Transient altered mental status-likely toxic metabolic encephalopathy:
Overnight stroke alert
CT of the head and CTA of the head and neck unremarkable.
There were plans for MRI of the brain but it was canceled today-discussed with neurology and feel less likely stroke related.
There was also infectious workup done-unremarkable so far but will follow-up results.
He had Eliquis on hold and placed on aspirin but will place him back on Eliquis.
Contact dermatitis:
Hydrocortisone cream
Reactive leukocytosis:
WBC trending down after stopping steroids and continues to be normal
WBC today 8.5
No need to trend
Paroxysmal atrial fibrillation:
Continue rate control agents, N-Dmrulxui-Ebipp 6.25 mg twice a day
Continue antiarrhythmic agents, Multaq 400 mg daily
Continue anticoagulation, DOAC-Eliquis 5 mg p.o. twice a day
Continue cardiac monitoring
Aortic stenosis status post bio AVR:
Follow-up as outpatient with serial echo
DVT prophylaxis:
Eliquis
CODE STATUS:
Full code
Anticipated Discharge: Today
Subjective/Interval History
-
Date of Service: April 09, 2024
Events overnight reviewed. patient alert and back to his baseline. back pain not as bad as before today
Objective Data
-
Labs:
Laboratory Results
04/08/24 04/08/24
22:00 22:51
WBC Cancelled 8.5
Hgb Cancelled 12.6 L
Hct Cancelled 36.3 L
Plt Count Cancelled 102 L
PT 16.7 H
INR 1.35
APTT 28.2
Sodium 136
Potassium 3.8
Chloride 98
Carbon Dioxide 31 H
BUN 30 H
Creatinine 1.1
Glucose 128 H
Calcium 9.6
Vital Signs:
Vital Signs
Temp Pulse Resp BP Pulse Ox
97.6 F 62 18 110/57 99
04/09/24 07:30 04/09/24 07:30 04/09/24 07:30 04/09/24 07:30 04/09/24 07:30
I&O
04/08/24 04/09/24 04/10/24
06:59 06:59 06:59
Intake Total 960 / 960
Output Total 700 / 700 1200 / 1200
Balance -700 / -700 -240 / -240
[2024-04-09] MEDS: SENOKOT PO (09:13)
[2024-04-09] MEDS: NEURONTIN 300 MG PO (09:21)
[2024-04-09] MEDS: LOW STRENGTH ASPIRIN 81 MG PO (09:21)
[2024-04-09] MEDS: TYLENOL 1000 MG PO ×2 (09:21→17:11)
[2024-04-09] MEDS: MAGNESIUM OXIDE 400 MG PO (09:22)
[2024-04-09] MEDS: HYDROCORTISONE 1% CREAM 1 APPLIC TOPICAL (09:22)
[2024-04-09] MEDS: MIRALAX 17 GRAMS PO (09:22)
[2024-04-09] MEDS: LIDOCAINE 4% PATCH 1 PATCH TOPICAL (09:24)
[2024-04-09 10:24] LABS: Glycohemoglobin (HgbA1c) 6.4 % (4.0-5.6)
[2024-04-09 11:35] LABS: HDL Cholesterol 33 mg/dl; LDL Cholesterol, Calculated 83 mg/dl; Total Cholesterol 156 mg/dl (50-199); Triglyceride 201 mg/dl (10-149); Very Low Density Lipoprotein 40 mg/dl (0-30)
[2024-04-09 11:44] VITALS: BP 129/68
--- NOTE | 2024-04-09 12:08 | CM ---
Chart reviewed and patient is for transfer to [facility] calling for report.
Plan; Hospital to Hospital transfer.
--- NOTE | 2024-04-09 12:09 | PTOTSP ---
Dysphagia Evaluation
Oral/pharyngeal swallowing suspected to be grossly WFL based on clinical bedside swallowing evaluation.
No dysarthria or aphasia noted. Communication skills WFL for conversation level.
Recommend:
1. Regular, Thin LIquids
2. Medications as best tolerated
3. Oral care 2x daily
No further dysphagia therapy warranted. Please reconsult as appropriate.
[2024-04-09 12:41] LABS: Vitamin B12 806 pg/ml (239-931)
[2024-04-09 12:49] LABS: Free T4 1.45 ng/dl (0.78-2.19)
[2024-04-09 13:57] LABS: Folate 9.6 ng/ml (2.76-20)
[2024-04-09 15:00] VITALS: BP 140/72
--- NOTE | 2024-04-09 17:05 | W.DCSUMMARY ---
Discharge Summary
Discharge Data
Date of Admission: 04/08/24
Date of Discharge: 04/09/24
-
Pending Results: No
Hospital Course
Patient 84 years old male with history of paroxysmal A-fib, hypothyroidism, hypertension, hyperlipidemia, aortic stenosis status post bioprosthetic aortic valve, BPH, gout, renal calculi, anxiety depression, CAD, chronic back pain, came into the
hospital with acute on chronic back pain. Patient back pain was debilitating and he had some urinary incontinence. He had been taking some steroids and pain medications without significant relief. Patient came into the hospital had a CT scan of
the thoracic and lumbar spine that shows some canal spinal stenosis and several DJD levels. This was the result of a CT scan of thoracic and lumbar spine: CT thoracic and lumbar:No evidence of acute fracture or traumatic malalignment.Multilevel
degenerative changes with resultant severe canal stenosis at the L3-L4 and L4-L5 levels. There is additional moderate canal stenosis at the L2-L3 and L5-S1 levels. Multilevel high-grade neuroforaminal narrowing.Trace pleural calcifications along the
right hemidiaphragm which may related to prior asbestos exposure.
Patient course complicated with sudden onset of mental status changes and stroke alert was called. Neurology evaluated the patient and he had CT scan of the head and CTA of the head and neck without significant abnormalities. After evaluation no
further diagnostic tests were pursued since the event was felt to be related to toxic metabolic encephalopathy. Patient is back to baseline and no neurological deficits appreciated the following day.
He also has some leukocytosis but it came back to normal. He has remained afebrile. Infectious workup revealed no signs of active infection until date.
Patient was placed on multimodal pain regimen with Tylenol, Lidoderm patch, gabapentin, and OxyContin long-acting, Oxy IR 5 mg for moderate pain and 10 mg for severe pain. He also was placed on bowel regimen. Patient pain was not well-controlled
at times and at other times it was better. He participated with physical therapy and Occupational Therapy. He contacted his pain specialist who contacted [facility] neurosurgical team and I reached out to transfer line today and discussed with
Dr. Mccray neurosurgeon who accepted the patient in transfer and accepting physician would be Dr. Mccormack. He will be transferred in relatively stable condition today.
Discharge duration: 35 minutes
Discharge Plan
-
Patient Disposition: Acute Care Hospital
Discharge Orders:
Discharge Patient (As Directed); Ordered 04/09/24
Ordered By: Seng De La Rosa
Discharge Date and Time
Print Language: [id number]
[2024-04-09] MEDS: MULTAQ 400 MG PO (17:11)
[2024-04-09] MEDS: ROXICODONE 5 MG PO (17:12)
== END 2024-04-09 19:15 | disposition short-term general hospital (02) | DRG 551 ==
LOC: 4 WEST ACU 09:00
PROVIDERS: Emergency Medicine; Nurse Practitioner Family; ADMITTING PHYSICIAN Hospitalist; ATTENDING PHYSICIAN Hospitalist; CONSULT PHYSICIAN Psychiatry & Neurology Neurology; EMERGENCY PHYSICIAN Emergency Medicine; FAMILY PHYSICIAN Internal Medicine
DX: M48.061 Spinal stenosis, lumbar region without neurogenic claudication (principal); G92.8 Other toxic encephalopathy; E03.9 Hypothyroidism, unspecified; I10 Essential (primary) hypertension; I35.0 Nonrheumatic aortic (valve) stenosis; Z95.3 Presence of xenogenic heart valve; F32.A Depression, unspecified; M47.26 Other spondylosis with radiculopathy, lumbar region; M47.24 Other spondylosis with radiculopathy, thoracic region; M54.6 Pain in thoracic spine; M54.50 Low back pain, unspecified; D72.829 Elevated white blood cell count, unspecified; E78.5 Hyperlipidemia, unspecified; G89.29 Other chronic pain; I25.10 Atherosclerotic heart disease of native coronary artery without angina pectoris; Z95.1 Presence of aortocoronary bypass graft; I48.0 Paroxysmal atrial fibrillation; M10.9 Gout, unspecified; N40.0 Benign prostatic hyperplasia without lower urinary tract symptoms; F41.9 Anxiety disorder, unspecified; R32 Unspecified urinary incontinence; Z77.090 Contact with and (suspected) exposure to asbestos; Z79.01 Long term (current) use of anticoagulants; Z79.52 Long term (current) use of systemic steroids; Z79.899 Other long term (current) drug therapy; Z87.442 Personal history of urinary calculi; Z87.19 Personal history of other diseases of the digestive system
CPT/HCPCS: 70450; 70496; 70498; 71045; 72128; 72131; 80048; 80053; 80061; 80306; 80307; 81003; 81015; 82550; 82607; 82728; 82746; 82962; 83036; 83605; 83880; 84439; 84443; 84484; 85025; 85027; 85610; 85652; 85730; 86140; 87040; 87077; 87086; 87205; 87811; 92610; 93005; 96374; 96375; 96376; 97163; 99285; Q9967